=== PATIENT | female | born 1940 | race Caucasian/White ===

== ENCOUNTER 2016-10-20 17:53 | Inpatient (IN) | payer MEDICARE, BC ==
[2016-10-20] MEDS ORDERED: ACETAMINOPHEN 325 MG TABLET PO PRN (18:04)
[2016-10-20] MEDS ORDERED: FAMOTIDINE 20 MG TABLET PO PRN (18:04)
[2016-10-20] MEDS ORDERED: HOME MEDICATION LIST NEEDED 1 EA EACH MC ONE (18:04)
[2016-10-20] MEDS ORDERED: SODIUM CHLORIDE NASAL SPRAY 44 SPRAY/44 ML BTL NASAL PRN (18:23)
[2016-10-20] MEDS ORDERED: DIPHENHYDRAMINE 25 MG CAPSULE PO PRN (18:25)
[2016-10-20 18:45] LABS: HEMOGLOBIN 15.1 g/dL (12.0-16.0)
[2016-10-20 18:50] LABS: BASOPHILS 0.3 % (0.0-2.0); EOSINOPHILS 0.7 % (0.0-6.0); EOSINOPHILS# 0.1 X 10^3uL (0.0-0.4); HEMATOCRIT 43.9 % (36.0-48.0); LYMPHOCYTES 12.7 % (20.0-40.0); LYMPHOCYTES# 1.2 X 10^3uL (0.8-3.8); MEAN CELL VOLUME 89.9 fL (80.0-100.0); MEAN CORPUS. HGB CONCENTRATION 34.5 g/dL (32.0-36.0); MEAN PLATELET VOLUME 7.9 fL (7.4-10.4); MONOCYTES 4.1 % (2.0-10.0); MONOCYTES# 0.4 X 10^3uL (0.2-1.0); NEUTROPHILS 82.2 % (54.0-75.0); NEUTROPHILS# 8.1 X 10^3uL (2.6-6.7); PLATELET COUNT 279 X 10^3uL (130-440); RED BLOOD COUNT 4.89 X 10^6uL (4.20-6.10); RED CELL DISTRIBUTION WIDTH 12.5 % (11.5-14.5); WHITE BLOOD COUNT 9.8 X 10^3uL (3.9-10.7)
[2016-10-20 18:56] LABS: ALBUMIN 4.7 g/dL (3.5-5.0); ALKALINE PHOSPHATASE 88 U/L (38-126); ALT 49 U/L (9-52); AST 30 U/L (14-36); BILIRUBIN, DIRECT 0.2 mg/dL (0.0-0.4); BILIRUBIN, TOTAL 0.6 mg/dL (0.2-1.3); BLOOD UREA NITROGEN 12 mg/dL (7-17); CALCIUM 9.4 mg/dL (8.4-10.2); CHLORIDE 100 mmol/L (98-107); CREATININE 0.9 mg/dL (0.5-1.0); EST GLOMERULAR FILTRATION RATE > 60 mL/min; GLUCOSE 104 mg/dL (70-100); POTASSIUM 4.1 mmol/L (3.5-5.1); SODIUM 134 mmol/L (137-145)
[2016-10-20] MEDS: IPRATROPIUM/ALBUTEROL 0.5/3 MG 3 ML AMPUL.NEB INHALATION SCH ×2 (19:56→22:46)
[2016-10-20] MEDS ORDERED: HOME MEDICATION LIST NEEDED 1 EA EACH MISC ONE (20:00)
[2016-10-20 20:12] LABS: URINE MUCUS NONE SEEN (Up to 25%)
[2016-10-20] MEDS: FLUTICASONE NASAL 120 SPRAY BTL NASAL SCH (20:13)
[2016-10-20] MEDS: GUAIFENESIN ER 600 MG TABLET PO SCH (20:14)
[2016-10-20] MEDS: METHYLPREDNISOLONE SOD 125 MG/2 ML VIAL IV SCH (20:14)
[2016-10-20] MEDS: TUSSIONEX PENNKINETIC SUSP 5 ML UDC PO SCH (20:14)
[2016-10-20] MEDS: NORMAL SALINE 1,000 ML IV SCH (20:14)
[2016-10-20 20:24] LABS: URINE APPEARANCE CLEAR; URINE BILIRUBIN NEGATIVE (NEGATIVE); URINE BLOOD 10 Ery/uL (1+) (NEGATIVE); URINE COLOR YELLOW; URINE GLUCOSE NORMAL (NEGATIVE); URINE KETONE NEGATIVE (NEGATIVE); URINE LEUKOCYTE ESTERASE NEGATIVE (NEGATIVE); URINE NITRITE NEGATIVE (NEGATIVE); URINE PH 5.5 (5-7); URINE PROTEIN NEGATIVE (NEG - TRACE); URINE SPECIFIC GRAVITY < or = 1.005 (0.001-1.035); URINE UROBILINOGEN NORMAL (NEG-1mg/dL)
[2016-10-20 20:25] LABS: URINE BACTERIA NONE SEEN (<10/hpf); URINE RBC 0-5/hpf (0-5/hpf); URINE SQUAMOUS EPITHELIAL CELL 0-5/hpf (<= 15/hpf); URINE WBC 0-4/hpf (0-4/hpf)
[2016-10-20] MEDS: traZODone HCL 50 MG TABLET PO SCH (21:19)
[2016-10-20] MEDS: OSELTAMIVIR PHOSPHATE 75 MG CAPSULE PO SCH (21:19)
[2016-10-21] MEDS: METHYLPREDNISOLONE SOD 125 MG/2 ML VIAL IV SCH ×4 (00:52→21:08)
[2016-10-21] MEDS: IPRATROPIUM/ALBUTEROL 0.5/3 MG 3 ML AMPUL.NEB INHALATION SCH ×5 (02:30→21:07)
[2016-10-21] MEDS: NORMAL SALINE 1,000 ML IV SCH (02:41)
[2016-10-21 05:42] LABS: BASOPHILS 0.2 % (0.0-2.0); HEMATOCRIT 36.5 % (36.0-48.0); HEMOGLOBIN 12.6 g/dL (12.0-16.0); LYMPHOCYTES 5.8 % (20.0-40.0); LYMPHOCYTES# 0.4 X 10^3uL (0.8-3.8); MEAN CELL VOLUME 89.9 fL (80.0-100.0); MEAN CORPUS. HGB CONCENTRATION 34.3 g/dL (32.0-36.0); MEAN CORPUSCULAR HEMOGLOBIN 30.9 pg (29.0-35.0); MONOCYTES 0.4 % (2.0-10.0); NEUTROPHILS 93.6 % (54.0-75.0); NEUTROPHILS# 7.2 X 10^3uL (2.6-6.7); PLATELET COUNT 230 X 10^3uL (130-440); RED BLOOD COUNT 4.07 X 10^6uL (4.20-6.10); RED CELL DISTRIBUTION WIDTH 12.5 % (11.5-14.5); WHITE BLOOD COUNT 7.6 X 10^3uL (3.9-10.7)
[2016-10-21 05:48] LABS: BLOOD UREA NITROGEN 11 mg/dL (7-17); CALCIUM 8.5 mg/dL (8.4-10.2); CHLORIDE 104 mmol/L (98-107); CREATININE 0.8 mg/dL (0.5-1.0); EST GLOMERULAR FILTRATION RATE > 60 mL/min; POTASSIUM 3.8 mmol/L (3.5-5.1); SODIUM 133 mmol/L (137-145)
[2016-10-21 05:49] LABS: GLUCOSE 255 mg/dL (70-100)
[2016-10-21] MEDS: TUSSIONEX PENNKINETIC SUSP 5 ML UDC PO SCH ×2 (06:29→21:07)
[2016-10-21] MEDS: GUAIFENESIN ER 600 MG TABLET PO SCH ×2 (06:29→21:07)
--- NOTE | 2016-10-21 07:10 | HISTORY & PHYSICAL ---
DATE OF ADMISSION: 10/20/16 ATTENDING PHYSICIAN: Hemalatha Hackett MD PRIMARY CARE PHYSICIAN: Hemalatha Hackett MD CHIEF COMPLAINT: Fatigue. HISTORY OF PRESENT ILLNESS: This is a very pleasant otherwise healthy 76-year- old female who was diagnosed with influenza B on 10/16/16. She states that she has had 10-11 days of illness including sweats, but no fevers or chills, productive cough and profound runny nose. She states that her symptoms are worse than when she was diagnosed and see in the office on 10/16/16. She is having significant shortness of breath. She is waking up in the middle of the night short of breath and needs to prop herself with pillows at night. She is having chest tightness and rib pain secondary to her coughing. She had mild sore throat on the right which is now resolved. She states that she has had decreased oral intake and decreased urine output. REVIEW OF SYSTEMS: She has not had any abdominal pain. No nausea or vomiting. No diarrhea. She had a colonoscopy on 10/08/16 and does not believe she has had a bowel movement since that time. She has had decreased oral intake. No rash. No headache. She has had lightheadedness and dizziness. She states that the only reason she has been able to get any sleep is due to taking Nyquil in the evening. She has been using Cheratussin for her cough. She tried Singular which helped initially, but did not help when she took the Singular the next day. She has not had any eye drainage. She has had some ear ringing. PAST MEDICAL HISTORY 1. Chronic allergic rhinitis, she receives allergy shots. 2. Posterior bilateral vitreous detachment. 3. History of cataracts. 4. Dry eye syndrome. 5. 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 6. Osteopenia. 7. Hyperlipidemia. 8. Anxiety. 9. Hypothyroidism, although she has never taken medications: mildly elevated TSH with normal T3, T4. 10. History of left shoulder dislocation. 11. Insomnia. MEDICATIONS Cheratussin 5 mL every 8 hours as needed for cough. Tamiflu 75mg po BID (2 dosages left). Zyrtec allergy 10 mg daily. Trazadone 100 mg at bedtime. Singular 10 mg 2 hours before allergy shots. Flonase 2 squirts each nostril daily as needed for allergy symptoms. Centrum silver. Multivitamin daily. Fish oil daily. Potassium 99 mg tablet as needed for leg cramps. ALLERGIES: Penicillin causes hives. SOCIAL HISTORY: She is single. She has never been . No children. 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 Alcohol, 1 glass of wine at night. She is a former smoker, 30+ pack years. Quit tobacco 1979 and smoked 1-1.5 packs per day. She is a full- time [place] resident. FAMILY HISTORY: Mom at the age of 92, osteoporosis, hypertension, coronary artery disease, Parkinsons, hypothyroidism, macular degeneration. Dad at the age of 83 with history of cerebrovascular accident, coronary artery disease and alcohol abuse. She has a half sister who had a stroke at the age of 68, breast cancer diagnosed at 78, atrial fibrillation, valve replacement and a half brother in his mid-60s, colon cancer which was diagnosed in his 60s. DATA: Chest x-ray shows some lung hyperexpansion and increased peribronchial markings consistent with viral process but no acute infiltrate. No fluid. No other abnormalities. PHYSICAL EXAMINATION VITAL SIGNS: Temperature 96.9, pulse 88, respiratory rate 24, blood pressure 128 /66, 91% on room air and 90% with minimal ambulation with a heart rate of 104. Her weight is 146.7 pounds. Height 66.5 inches. GENERAL: This is an elderly female who appears moderately ill and quite fatigued. She is in mild respiratory distress at rest. HEENT: Her sclerae are clear. Her pupils are equal, round and reactive to light. Extraocular movements are intact. Her TMs are clear. Her nares are boggy and congested with abutting mucosa. Her oropharynx is clear. Her mucous membranes are moist and intact. Her lips are dry. NECK: Her neck is supple with no carotid bruits. No lymphadenopathy. No jugular venous distention. LUNGS: Poor aeration throughout with diffuse inspiratory and expiratory wheezing. She has high pitched noises. No E:A changes. No rales. HEART: Regular rate and rhythm without any murmurs, rubs or gallops. ABDOMEN: Soft, nontender, nondistended with good bowel sounds and no masses or hepatosplenomegaly. EXTREMITIES: Warm with no clubbing, cyanosis or edema. Negative Homans. Nontender. NEUROLOGIC: Alert and oriented x3. Cranial nerves 2-12 are grossly intact without focal deficits. Her motor, sensation and DTRs are intact. Her gait is normal. No meningismus. ASSESSMENT: This is a 76-year-old female who presents with influenza B and with worsened bronchospasm, weakness and dehydration. PLAN 1. Fluids, electrolytes and nutrition. Will give IV fluids. Check electrolytes. Regular diet. 2. Respiratory. Chest x-ray is negative for acute infiltrate. Will finish course of Tamiflu. Will begin Solu-Medrol, incentive spirometer, respiratory therapy consult. Give back to back duo nebulizers and then duo nebulizers every 4 hours. She is currently not requiring oxygen but will use oxygen to maintain saturations 90-95%. Tussionex cough syrup. Benadryl. Mucinex. Follow closely. 3. Cardiovascular. Patient without cardiac history, although she does have a history of palpitations. She has had a negative cardiac workup with Holter monitor showing rare PVCs and PACs. No pauses or heart block and these palpitations are only in conjunction with sinus rhythm. Echocardiogram normal. Will place on telemetry. Check EKG. 4. Infectious disease. Patient without evidence of acute bacterial process. Will check urinalysis. Will not begin antibiotics at this time. 5. Disposition. Full COR. Admitted full admission. Anticipate 2-3 day hospital stay. Social work consult. May consider physical therapy consult if her weakness does not improve. MTDD
--- NOTE | 2016-10-21 08:21 | PROGRESS NOTE: IM SOAP ---
IM: PN Subjective General: fatigue (But greatly improved.), anxiety (Decreased now that she is feeling better.), no good appetite (But improving. ), no diaphoresis, no fever, no chills HEENT: other (Dry mouth. Drinking fluids well. Postnasal drainage improved.) Cardiovascular: chest pain (Decreased. ), dizziness (Improved with walking to BR.) Respiratory: cough (Decreased; still productive.), sputum, wheeze (Also improved. ), SOB (Improved. ) Gastrointestinal: constipation (But not uncomfortable.), no abdominal pain, no bloating, no nausea, no vomiting Musculoskeletal: no pain Neurological: headache IM: PN Objective Exam - I&O/Vital Signs I&O: Intake & Output 10/20/16 10/21/16 10/21/16 21:59 05:59 13:59 Intake Total 2170 Output Total 1150 Balance 1020 Weight 66.451 kg 66.366 kg Intake: IV 1320 Left Forearm 1320 Oral 850 Output: Urine 1150 Other: Urine Appearance Clear Clear Urine Color Yellow Yellow Voiding Method Toilet Toilet # Voids 3 # Bowel Movements 0 Vital Signs: Last Vital Signs Temp 36.3 C L 10/21/16 06:32 Pulse 90 10/21/16 06:32 Resp 13 10/21/16 06:32 BP 124/67 10/21/16 06:32 Pulse Ox 92 10/21/16 06:32 Oxygen Delivery Method Room Air - Constitutional General appearance: Present: average body habitus, cooperative. Absent: acute distress - Head Head exam: Present: atraumatic, normocephalic - Eye Eye exam: Present: EOMI, PERRL - ENT ENT exam: Present: mucous membranes moist - Neck Neck exam: Present: full ROM - Respiratory Respiratory exam: Present: clear (Greatly improved aeration throughout.). Absent: accessory muscle use, rales, rhonchi, wheezes - Cardiovascular Cardiovascular exam: Present: RRR. Absent: gallop, rubs, systolic murmur - GI/Abdominal GI/Abdominal exam: Present: normal bowel sounds, soft. Absent: mass, organomegaly, tenderness - Extremities Exam Extremities exam: Absent: calf tenderness, Mohan's Sign, edema - Neurological Exam Neurological exam: Present: alert, oriented X3 - Skin Skin exam: Present: warm - Allied Health Notes Allied health notes reviewed: nursing - Lab Labs: Laboratory Last Values WBC 7.6 X 10^3uL (3.9-10.7) 10/21/16 05:00 RBC 4.07 X 10^6uL (4.20-6.10) L 10/21/16 05:00 Hgb 12.6 g/dL (12.0-16.0) 10/21/16 05:00 Hct 36.5 % (36.0-48.0) 10/21/16 05:00 MCV 89.9 fL (80.0-100.0) 10/21/16 05:00 MCH 30.9 pg (29.0-35.0) 10/21/16 05:00 MCHC 34.3 g/dL (32.0-36.0) 10/21/16 05:00 RDW 12.5 % (11.5-14.5) 10/21/16 05:00 Plt Count 230 X 10^3uL (130-440) 10/21/16 05:00 MPV 8.0 fL (7.4-10.4) 10/21/16 05:00 Neutrophils % 93.6 % (54.0-75.0) H 10/21/16 05:00 Lymphocytes % 5.8 % (20.0-40.0) L 10/21/16 05:00 Eosinophils % 0.0 % (0.0-6.0) 10/21/16 05:00 Basophils % 0.2 % (0.0-2.0) 10/21/16 05:00 Neutrophils # 7.2 X 10^3uL (2.6-6.7) H 10/21/16 05:00 Lymphocytes # 0.4 X 10^3uL (0.8-3.8) L 10/21/16 05:00 Monocytes 0.4 % (2.0-10.0) L 10/21/16 05:00 Monocytes # 0.0 X 10^3uL (0.2-1.0) L 10/21/16 05:00 Eosinophils # 0.0 X 10^3uL (0.0-0.4) 10/21/16 05:00 Basophils # 0.0 X 10^3uL (0.0-0.1) 10/21/16 05:00 Sodium 133 mmol/L (137-145) L 10/21/16 05:00 Potassium 3.8 mmol/L (3.5-5.1) 10/21/16 05:00 Chloride 104 mmol/L (98-107) 10/21/16 05:00 Carbon Dioxide 19 mmol/L (22-30) L 10/21/16 05:00 BUN 11 mg/dL (7-17) 10/21/16 05:00 Creatinine 0.8 mg/dL (0.5-1.0) 10/21/16 05:00 GFR Calculation > 60 mL/min 10/21/16 05:00 Glucose 255 mg/dL (70-100) H 10/21/16 05:00 Calcium 8.5 mg/dL (8.4-10.2) 10/21/16 05:00 Total Bilirubin 0.6 mg/dL (0.2-1.3) 10/20/16 18:04 Direct Bilirubin 0.2 mg/dL (0.0-0.4) 10/20/16 18:04 AST 30 U/L (14-36) 10/20/16 18:04 ALT 49 U/L (9-52) 10/20/16 18:04 Alkaline Phosphatase 88 U/L (38-126) 10/20/16 18:04 Total Protein 8.0 g/dL (6.3-8.2) 10/20/16 18:04 Albumin 4.7 g/dL (3.5-5.0) 10/20/16 18:04 Urine Color Yellow 10/20/16 20:00 Urine Appearance Clear 10/20/16 20:00 Urine pH 5.5 (5-7) 10/20/16 20:00 Ur Specific [place] < or = 1.005 (0.001-1.035) 10/20/16 20:00 Urine Protein Negative (NEG - TRACE) 10/20/16 20:00 Urine Ketones Negative (NEGATIVE) 10/20/16 20:00 Urine Blood 10 km/ul (1+) (NEGATIVE) A 10/20/16 20:00 Urine Nitrate Negative (NEGATIVE) 10/20/16 20:00 Urine Bilirubin Negative (NEGATIVE) 10/20/16 20:00 Urine Urobilinogen Normal (NEG-1mg/dL) 10/20/16 20:00 Ur Leukocyte Esterase Negative (NEGATIVE) 10/20/16 20:00 Urine RBC 0-5/hpf (0-5/hpf) 10/20/16 20:00 Urine WBC 0-4/hpf (0-4/hpf) 10/20/16 20:00 Ur Squamous Epith Cells 0-5/hpf (<= 15/hpf) 10/20/16 20:00 Urine Bacteria None seen (<10/hpf) 10/20/16 20:00 Urine Mucus None seen (Up to 25%) 10/20/16 20:00 Urine Glucose Normal (NEGATIVE) 10/20/16 20:00 Assessment and Plan - Date of Encounter Date of Encounter: 10/21/16 (1) Influenza B Status: Acute Assessment and plan: Diagnosed 10/16/16. Finishing Tamiflu today. She has developed a post-viral bronchospasm. Improving. Current Visit: Yes (2) Bronchospasm Status: Acute Assessment and plan: Former smoker. Severe pneumonia as a child. No prior h/o asthma. She developed significant bronchospasm with poor aeration, wheezing, and intractable cough after diagnosis with influenza B. CXR negative. Greatly improved today with IV steroids, Duonebs, and IS. RT consult today. Will decrease IV steroids. If she develops further reactive disease as outpatient, will pursue PFTs and pulmonary consult. Current Visit: Yes (3) Weakness Status: Acute Assessment and plan: Profound weakness on admission which has improved. BC IVF with improved po. PT to evaluate for home safety. Current Visit: Yes (4) Hyponatremia Status: Acute Assessment and plan: Known SIADH. Now with lung process and low sodium. Overall stable. Follow. Current Visit: Yes (5) Hyperglycemia Status: Acute Assessment and plan: No known h/o glucose intolerance. Elevated BS most likely related to IV steroids. Follow. Current Visit: Yes (6) PAC (premature atrial contraction) Status: Chronic Assessment and plan: Known PACs and PVCs with Holter monitor and echocardiogram otherwise normal. EKG without acute changes and telemetry stable overnight. Current Visit: Yes - Time Spent With Patient Total time spent with greater than 50% in coordination of care (as documented) at patient's floor/unit and/or counseling patient: 16-24 minutes Estimated anticipated discharge: Tomorrow. Quality Questions - VTE Prophylaxis Assessment VTE Present on Admission?: No Patient at risk for venous thromboembolism?: Yes VTE Risk Level: Moderate Risk Pharmaceutical VTE prophylaxis contraindication reason: N/A- VTE prophylaxsis ordered Mechanical VTE prophylaxis contraindication reason: N/A- VTE prophylaxsis ordered
[2016-10-21] MEDS ORDERED: METHYLPREDNISOLONE SOD 125 MG/2 ML VIAL IV SCH (09:00)
[2016-10-21] MEDS: OSELTAMIVIR PHOSPHATE 75 MG CAPSULE PO SCH (09:09)
[2016-10-21] MEDS: FLUTICASONE NASAL 120 SPRAY BTL NASAL SCH (09:09)
[2016-10-21] MEDS: SENNOSIDES/DOCUSATE SODIUM 1 TAB TABLET PO SCH ×2 (16:33→21:08)
[2016-10-21] MEDS: traZODone HCL 50 MG TABLET PO SCH (21:07)
[2016-10-21] MEDS ORDERED: MAG-AL PLUS XS SUSP 30 ML UDC ONE (21:55)
[2016-10-22] MEDS: IPRATROPIUM/ALBUTEROL 0.5/3 MG 3 ML AMPUL.NEB INHALATION SCH ×6 (00:46→23:10)
[2016-10-22 06:10] LABS: BLOOD UREA NITROGEN 13 mg/dL (7-17); CHLORIDE 105 mmol/L (98-107); CREATININE 0.7 mg/dL (0.5-1.0); EST GLOMERULAR FILTRATION RATE > 60 mL/min; GLUCOSE 139 mg/dL (70-100); POTASSIUM 4.6 mmol/L (3.5-5.1); SODIUM 134 mmol/L (137-145)
[2016-10-22 06:45] LABS: HEMATOCRIT 37.4 % (36.0-48.0); HEMOGLOBIN 13.1 g/dL (12.0-16.0); MEAN CELL VOLUME 90.1 fL (80.0-100.0); MEAN CORPUSCULAR HEMOGLOBIN 31.5 pg (29.0-35.0); MEAN PLATELET VOLUME 7.8 fL (7.4-10.4); PLATELET COUNT 267 X 10^3uL (130-440); RED BLOOD COUNT 4.15 X 10^6uL (4.20-6.10); RED CELL DISTRIBUTION WIDTH 12.4 % (11.5-14.5); WHITE BLOOD COUNT 27.6 X 10^3uL (3.9-10.7)
[2016-10-22 06:46] LABS: BAND% (Manual) 5 % (0.0-1.0); NEUTROPHIL % (Manual) 86 % (54.0-75.0)
[2016-10-22 06:47] LABS: LYMPHOCYTE % (Manual) 6 % (20.0-40.0); MONOCYTE % (Manual) 3 % (2.0-10.0)
[2016-10-22 06:48] LABS: PLATELET ESTIMATE ADEQUATE
[2016-10-22] MEDS: GUAIFENESIN ER 600 MG TABLET PO SCH ×2 (06:50→20:33)
[2016-10-22] MEDS: TUSSIONEX PENNKINETIC SUSP 5 ML UDC PO SCH ×2 (06:50→20:33)
--- NOTE | 2016-10-22 08:41 | PROGRESS NOTE: IM SOAP ---
IM: PN Subjective General: fatigue (But greatly improved.), anxiety (Anxious; tearful; requests not togo home today as she does not believe she can take care of herself at home alone.), depression, good appetite (Improved.), diaphoresis (She states that she had sweats last night a), no fever, no chills HEENT: headache (Frontal.), other (Dry mouth. Drinking fluids well. Postnasal drainage improved.) Cardiovascular: chest pain (Decreased. ), dizziness (Improved with walking to BR.) Respiratory: cough (Decreased; still productive.), sputum, wheeze (Also improved. ), SOB (Improved. ) Gastrointestinal: constipation (Small BM. ), other (Heartburn last night.), no abdominal pain, no bloating, no nausea, no vomiting Musculoskeletal: no pain Neurological: headache IM: PN Objective Exam - I&O/Vital Signs I&O: Intake & Output 10/21/16 10/22/16 10/22/16 21:59 05:59 13:59 Intake Total 1200 850 Output Total 1000 Balance 200 850 Weight 66.366 kg 66 kg Intake: Oral 1200 850 Output: Urine 1000 Other: Urine Appearance Clear Urine Color Yellow Stool Size Moderate Stool Characteristics Formed Brown Voiding Method Toilet # Voids 1 3 # Bowel Movements 1 Vital Signs: Last Vital Signs Temp 36.3 C L 10/22/16 06:52 Pulse 88 10/22/16 06:52 Resp 17 10/22/16 06:52 BP 136/72 10/22/16 06:52 Pulse Ox 93 10/22/16 06:52 Oxygen Delivery Method Room Air - Constitutional General appearance: Present: average body habitus, cooperative, acute distress ( Jittery with tremor from medications. Anxious.) - Head Head exam: Present: atraumatic, normocephalic - Eye Eye exam: Present: EOMI, PERRL - ENT ENT exam: Present: mucous membranes moist - Neck Neck exam: Present: full ROM - Respiratory Respiratory exam: Present: wheezes (Occasional inspiratory and expiratory wheezes throughout this morning.). Absent: accessory muscle use, rales, rhonchi - Cardiovascular Cardiovascular exam: Present: tachycardia (Low 100s.). Absent: gallop, rubs, systolic murmur - GI/Abdominal GI/Abdominal exam: Present: normal bowel sounds, soft. Absent: mass, organomegaly, tenderness - Extremities Exam Extremities exam: Absent: calf tenderness, Mohan's Sign, edema - Neurological Exam Neurological exam: Present: alert, oriented X3 - Psychiatric Psychiatric exam: Present: anxious, depressed - Skin Skin exam: Present: warm - Allied Health Notes Allied health notes reviewed: nursing, PT - Lab Labs: Laboratory Last Values WBC 27.6 X 10^3uL (3.9-10.7) H 10/22/16 05:00 RBC 4.15 X 10^6uL (4.20-6.10) L 10/22/16 05:00 Hgb 13.1 g/dL (12.0-16.0) 10/22/16 05:00 Hct 37.4 % (36.0-48.0) 10/22/16 05:00 MCV 90.1 fL (80.0-100.0) 10/22/16 05:00 MCH 31.5 pg (29.0-35.0) 10/22/16 05:00 MCHC 35.0 g/dL (32.0-36.0) 10/22/16 05:00 RDW 12.4 % (11.5-14.5) 10/22/16 05:00 Plt Count 267 X 10^3uL (130-440) 10/22/16 05:00 MPV 7.8 fL (7.4-10.4) 10/22/16 05:00 Total Counted 100 10/22/16 05:00 Neutrophils % 93.6 % (54.0-75.0) H 10/21/16 05:00 Neutrophils % (Manual) 86 % (54.0-75.0) H 10/22/16 05:00 Band Neuts % (Manual) 5 % (0.0-1.0) H 10/22/16 05:00 Lymphocytes % 5.8 % (20.0-40.0) L 10/21/16 05:00 Lymphocytes % (Manual) 6 % (20.0-40.0) L 10/22/16 05:00 Monocytes % (Manual) 3 % (2.0-10.0) 10/22/16 05:00 Eosinophils % 0.0 % (0.0-6.0) 10/21/16 05:00 Basophils % 0.2 % (0.0-2.0) 10/21/16 05:00 Neutrophils # 7.2 X 10^3uL (2.6-6.7) H 10/21/16 05:00 Lymphocytes # 0.4 X 10^3uL (0.8-3.8) L 10/21/16 05:00 Monocytes 0.4 % (2.0-10.0) L 10/21/16 05:00 Monocytes # 0.0 X 10^3uL (0.2-1.0) L 10/21/16 05:00 Eosinophils # 0.0 X 10^3uL (0.0-0.4) 10/21/16 05:00 Basophils # 0.0 X 10^3uL (0.0-0.1) 10/21/16 05:00 Platelet Estimate Adequate 10/22/16 05:00 Sodium 134 mmol/L (137-145) L 10/22/16 05:00 Potassium 4.6 mmol/L (3.5-5.1) D 10/22/16 05:00 Chloride 105 mmol/L (98-107) 10/22/16 05:00 Carbon Dioxide 21 mmol/L (22-30) L 10/22/16 05:00 BUN 13 mg/dL (7-17) 10/22/16 05:00 Creatinine 0.7 mg/dL (0.5-1.0) 10/22/16 05:00 GFR Calculation > 60 mL/min 10/22/16 05:00 Glucose 139 mg/dL (70-100) H 10/22/16 05:00 Calcium 9.0 mg/dL (8.4-10.2) 10/22/16 05:00 Total Bilirubin 0.6 mg/dL (0.2-1.3) 10/20/16 18:04 Direct Bilirubin 0.2 mg/dL (0.0-0.4) 10/20/16 18:04 AST 30 U/L (14-36) 10/20/16 18:04 ALT 49 U/L (9-52) 10/20/16 18:04 Alkaline Phosphatase 88 U/L (38-126) 10/20/16 18:04 Total Protein 8.0 g/dL (6.3-8.2) 10/20/16 18:04 Albumin 4.7 g/dL (3.5-5.0) 10/20/16 18:04 Urine Color Yellow 10/20/16 20:00 Urine Appearance Clear 10/20/16 20:00 Urine pH 5.5 (5-7) 10/20/16 20:00 Ur Specific [place] < or = 1.005 (0.001-1.035) 10/20/16 20:00 Urine Protein Negative (NEG - TRACE) 10/20/16 20:00 Urine Ketones Negative (NEGATIVE) 10/20/16 20:00 Urine Blood 10 km/ul (1+) (NEGATIVE) A 10/20/16 20:00 Urine Nitrate Negative (NEGATIVE) 10/20/16 20:00 Urine Bilirubin Negative (NEGATIVE) 10/20/16 20:00 Urine Urobilinogen Normal (NEG-1mg/dL) 10/20/16 20:00 Ur Leukocyte Esterase Negative (NEGATIVE) 10/20/16 20:00 Urine RBC 0-5/hpf (0-5/hpf) 10/20/16 20:00 Urine WBC 0-4/hpf (0-4/hpf) 10/20/16 20:00 Ur Squamous Epith Cells 0-5/hpf (<= 15/hpf) 10/20/16 20:00 Urine Bacteria None seen (<10/hpf) 10/20/16 20:00 Urine Mucus None seen (Up to 25%) 10/20/16 20:00 Urine Glucose Normal (NEGATIVE) 10/20/16 20:00 Assessment and Plan - Date of Encounter Date of Encounter: 10/22/16 (1) Influenza B Status: Acute Assessment and plan: Diagnosed 10/16/16. She has finished her course of Tamiflu. She has developed a post-viral bronchospasm. She continue to have wheezing and squeaks on exam. Lung aeration improving. She still has significant weakness and is not ready to go home as she does not have any help and is unable to take care of herself at home alone. We will plan to have her stay one more day. I have discussed with both Ivet and geriatric social worker, Lu Tao . Current Visit: Yes (2) Bronchospasm Status: Acute Assessment and plan: Former smoker. Severe pneumonia as a child. No prior h/o asthma. She developed significant bronchospasm with poor aeration, wheezing, and intractable cough after diagnosis with influenza B. CXR negative. Continues to improve. However, too weak to go home as above. Appreciate RT input. I have stopped IV steroids and transitioned to oral prednisone. If she develops further reactive disease as outpatient, will pursue PFTs and pulmonary consult. Current Visit: Yes (3) Weakness Status: Acute Assessment and plan: Profound weakness on admission which has improved, but still present. Current Visit: Yes (4) Hyponatremia Status: Acute Assessment and plan: Known SIADH. Now with lung process and low sodium. Overall stable. Follow. Current Visit: Yes (5) Hyperglycemia Status: Acute Assessment and plan: No known h/o glucose intolerance. Elevated BS most likely related to IV steroids. Follow. Current Visit: Yes (6) PAC (premature atrial contraction) Status: Chronic Assessment and plan: Known PACs and PVCs with Holter monitor and echocardiogram otherwise normal. EKG without acute changes and telemetry stable overnight. Sinus tachycardia most likely related to IV steroids and nebulizers. Current Visit: Yes (7) Leukocytosis Status: Acute Assessment and plan: Markedly elevated WBC this morning with mild bandemia most likely related to IV steroids. No fevers. Doubt bacterial process. Check BCx to ensure no underlying bacterial etiology. Recheck U/A and UCx. Check repeat CBC tomorrow morning. Follow closely. Current Visit: Yes - Time Spent With Patient Total time spent with greater than 50% in coordination of care (as documented) at patient's floor/unit and/or counseling patient: Estimated anticipated discharge: Tomorrow: 10/23/16. Quality Questions - VTE Prophylaxis Assessment VTE Present on Admission?: No Patient at risk for venous thromboembolism?: Yes VTE Risk Level: Moderate Risk Pharmaceutical VTE prophylaxis contraindication reason: N/A- VTE prophylaxsis ordered Mechanical VTE prophylaxis contraindication reason: N/A- VTE prophylaxsis ordered (7) Leukocytosis Qualifiers: Leukocytosis type: bandemia Qualified Code(s): D72.825 - Bandemia
[2016-10-22] MEDS ORDERED: predniSONE 5 MG TABLET PO SCH (09:00)
[2016-10-22] MEDS ORDERED: predniSONE 1 MG TABLET PO SCH (09:00)
[2016-10-22] MEDS: FLUTICASONE NASAL 120 SPRAY BTL NASAL SCH (10:13)
[2016-10-22] MEDS: predniSONE 10 MG TABLET PO SCH (10:13)
[2016-10-22 10:53] LABS: URINE MUCUS NONE SEEN (Up to 25%); URINE RBC NONE SEEN (0-5/hpf); URINE SQUAMOUS EPITHELIAL CELL NONE SEEN (<= 15/hpf); URINE WBC NONE SEEN (0-4/hpf)
[2016-10-22 11:32] LABS: URINE APPEARANCE CLEAR; URINE COLOR YELLOW; URINE LEUKOCYTE ESTERASE NEGATIVE (NEGATIVE); URINE NITRITE NEGATIVE (NEGATIVE); URINE PROTEIN NEGATIVE (NEG - TRACE)
[2016-10-22 11:33] LABS: URINE BACTERIA NONE SEEN (<10/hpf); URINE BILIRUBIN NEGATIVE (NEGATIVE); URINE BLOOD TRACE (NEGATIVE); URINE GLUCOSE NORMAL (NEGATIVE); URINE KETONE NEGATIVE (NEGATIVE); URINE UROBILINOGEN 0.2mg/dL (Normal) (NEG-1mg/dL)
[2016-10-22] MEDS: SENNOSIDES/DOCUSATE SODIUM 1 TAB TABLET PO SCH (20:33)
[2016-10-22] MEDS: traZODone HCL 50 MG TABLET PO SCH (20:34)
[2016-10-23] MEDS: IPRATROPIUM/ALBUTEROL 0.5/3 MG 3 ML AMPUL.NEB INHALATION SCH ×2 (04:47→08:16)
[2016-10-23 05:48] LABS: BASOPHILS 0.2 % (0.0-2.0); EOSINOPHILS 0.1 % (0.0-6.0); HEMATOCRIT 37.3 % (36.0-48.0); HEMOGLOBIN 12.7 g/dL (12.0-16.0); LYMPHOCYTES# 2.2 X 10^3uL (0.8-3.8); MEAN CELL VOLUME 90.2 fL (80.0-100.0); MEAN CORPUSCULAR HEMOGLOBIN 30.7 pg (29.0-35.0); MONOCYTES 5.2 % (2.0-10.0); NEUTROPHILS 82.5 % (54.0-75.0); NEUTROPHILS# 15.4 X 10^3uL (2.6-6.7); PLATELET COUNT 297 X 10^3uL (130-440); RED BLOOD COUNT 4.14 X 10^6uL (4.20-6.10); RED CELL DISTRIBUTION WIDTH 12.5 % (11.5-14.5); WHITE BLOOD COUNT 18.6 X 10^3uL (3.9-10.7)
[2016-10-23 05:55] LABS: BLOOD UREA NITROGEN 14 mg/dL (7-17); CALCIUM 8.6 mg/dL (8.4-10.2); CHLORIDE 105 mmol/L (98-107); CREATININE 0.8 mg/dL (0.5-1.0); EST GLOMERULAR FILTRATION RATE > 60 mL/min; GLUCOSE 90 mg/dL (70-100); POTASSIUM 4.1 mmol/L (3.5-5.1); SODIUM 136 mmol/L (137-145)
[2016-10-23 06:15] VITALS: BP 116/64; TEMP 97.9; O2SAT 93
[2016-10-23] MEDS: GUAIFENESIN ER 600 MG TABLET PO SCH (06:41)
[2016-10-23] MEDS: TUSSIONEX PENNKINETIC SUSP 5 ML UDC PO SCH (06:41)
[2016-10-23 08:19] VITALS: PULSE 89; RESP 14
[2016-10-23] MEDS: FLUTICASONE NASAL 120 SPRAY BTL NASAL SCH (09:09)
[2016-10-23] MEDS: predniSONE 10 MG TABLET PO SCH (09:09)
--- NOTE | 2016-10-23 11:06 | PROGRESS NOTE: IM SOAP ---
IM: PN Subjective Interval history: Feeling much better and stronger today and ready to go home. Will have family to support her at home. Still with dry cough for which she takes Tussionex. No wheezing, F/C. IM: PN Objective Exam - I&O/Vital Signs I&O: Intake & Output 10/22/16 10/23/16 10/23/16 21:59 05:59 13:59 Intake Total 340 625 Balance 340 625 Weight 66 kg 66 kg Intake: Oral 340 625 Other: Urine Appearance Clear Urine Color Yellow Stool Size Moderate Stool Characteristics Formed Brown Voiding Method Toilet # Voids 3 # Bowel Movements 1 Vital Signs: Last Vital Signs Temp 36.6 C 10/23/16 06:14 Pulse 89 10/23/16 08:18 Resp 14 10/23/16 08:18 BP 116/64 10/23/16 06:14 Pulse Ox 93 10/23/16 08:18 Oxygen Delivery Method Room Air - Respiratory Respiratory exam: Present: clear. Absent: rales, rhonchi, wheezes - Cardiovascular Cardiovascular exam: Present: RRR. Absent: systolic murmur - GI/Abdominal GI/Abdominal exam: Present: soft. Absent: tenderness - Extremities Exam Extremities exam: Absent: edema - Lab Labs: Laboratory Last Values WBC 18.6 X 10^3uL (3.9-10.7) H 10/23/16 05:35 RBC 4.14 X 10^6uL (4.20-6.10) L 10/23/16 05:35 Hgb 12.7 g/dL (12.0-16.0) 10/23/16 05:35 Hct 37.3 % (36.0-48.0) 10/23/16 05:35 MCV 90.2 fL (80.0-100.0) 10/23/16 05:35 MCH 30.7 pg (29.0-35.0) 10/23/16 05:35 MCHC 34.0 g/dL (32.0-36.0) 10/23/16 05:35 RDW 12.5 % (11.5-14.5) 10/23/16 05:35 Plt Count 297 X 10^3uL (130-440) 10/23/16 05:35 MPV 8.0 fL (7.4-10.4) 10/23/16 05:35 Total Counted 100 10/22/16 05:00 Neutrophils % 82.5 % (54.0-75.0) H 10/23/16 05:35 Neutrophils % (Manual) 86 % (54.0-75.0) H 10/22/16 05:00 Band Neuts % (Manual) 5 % (0.0-1.0) H 10/22/16 05:00 Lymphocytes % 12.0 % (20.0-40.0) L 10/23/16 05:35 Lymphocytes % (Manual) 6 % (20.0-40.0) L 10/22/16 05:00 Monocytes % (Manual) 3 % (2.0-10.0) 10/22/16 05:00 Eosinophils % 0.1 % (0.0-6.0) 10/23/16 05:35 Basophils % 0.2 % (0.0-2.0) 10/23/16 05:35 Neutrophils # 15.4 X 10^3uL (2.6-6.7) H 10/23/16 05:35 Lymphocytes # 2.2 X 10^3uL (0.8-3.8) 10/23/16 05:35 Monocytes 5.2 % (2.0-10.0) 10/23/16 05:35 Monocytes # 1.0 X 10^3uL (0.2-1.0) 10/23/16 05:35 Eosinophils # 0.0 X 10^3uL (0.0-0.4) 10/23/16 05:35 Basophils # 0.0 X 10^3uL (0.0-0.1) 10/23/16 05:35 Platelet Estimate Adequate 10/22/16 05:00 Sodium 136 mmol/L (137-145) L 10/23/16 05:35 Potassium 4.1 mmol/L (3.5-5.1) 10/23/16 05:35 Chloride 105 mmol/L (98-107) 10/23/16 05:35 Carbon Dioxide 25 mmol/L (22-30) 10/23/16 05:35 BUN 14 mg/dL (7-17) 10/23/16 05:35 Creatinine 0.8 mg/dL (0.5-1.0) 10/23/16 05:35 GFR Calculation > 60 mL/min 10/23/16 05:35 Glucose 90 mg/dL (70-100) 10/23/16 05:35 Calcium 8.6 mg/dL (8.4-10.2) 10/23/16 05:35 Total Bilirubin 0.6 mg/dL (0.2-1.3) 10/20/16 18:04 Direct Bilirubin 0.2 mg/dL (0.0-0.4) 10/20/16 18:04 AST 30 U/L (14-36) 10/20/16 18:04 ALT 49 U/L (9-52) 10/20/16 18:04 Alkaline Phosphatase 88 U/L (38-126) 10/20/16 18:04 Total Protein 8.0 g/dL (6.3-8.2) 10/20/16 18:04 Albumin 4.7 g/dL (3.5-5.0) 10/20/16 18:04 Urine Color Yellow 10/22/16 10:40 Urine Appearance Clear 10/22/16 10:40 Urine pH 6.0 (5-7) 10/22/16 10:40 Ur Specific [place] 1.010 (0.001-1.035) 10/22/16 10:40 Urine Protein Negative (NEG - TRACE) 10/22/16 10:40 Urine Ketones Negative (NEGATIVE) 10/22/16 10:40 Urine Blood Trace (NEGATIVE) A 10/22/16 10:40 Urine Nitrate Negative (NEGATIVE) 10/22/16 10:40 Urine Bilirubin Negative (NEGATIVE) 10/22/16 10:40 Urine Urobilinogen 0.2mg/dl (normal) (NEG-1mg/dL) 10/22/16 10:40 Ur Leukocyte Esterase Negative (NEGATIVE) 10/22/16 10:40 Urine RBC None seen (0-5/hpf) 10/22/16 10:40 Urine WBC None seen (0-4/hpf) 10/22/16 10:40 Ur Squamous Epith Cells None seen (<= 15/hpf) 10/22/16 10:40 Urine Bacteria None seen (<10/hpf) 10/22/16 10:40 Urine Mucus None seen (Up to 25%) 10/22/16 10:40 Urine Glucose Normal (NEGATIVE) 10/22/16 10:40 Assessment and Plan - Date of Encounter Date of Encounter: 10/23/16 (1) Influenza B Status: Acute Assessment and plan: Improving. No oxygen. No wheezing. No indication for inhalers per RT. Will discharge on steroid taper. No antibiotics, completed course of Tamiflu. Current Visit: Yes (2) Leukocytosis Status: Acute Assessment and plan: Secondary to steroids, improving with reduction in steroid dose Current Visit: Yes (3) Weakness Status: Acute Assessment and plan: Improving Current Visit: Yes - Time Spent With Patient Total time spent with greater than 50% in coordination of care (as documented) at patient's floor/unit and/or counseling patient: Estimated anticipated discharge: Tomorrow: 10/23/16.
--- NOTE | 2016-10-24 08:02 | DISCHARGE SUMMARY ---
DATE OF ADMISSION: 10/20/16 DATE OF DISCHARGE: 10/23/16 ATTENDING PHYSICIAN: Beni Salomon MD DIAGNOSES 1. Influenza B. 2. Leukocytosis. 3. Generalized weakness. HISTORY OF PRESENT ILLNESS: This is a 76-year-old female who was diagnosed with influenza B on 10/16/16 and prescribed TamiFlu. Apparently she had a 10-11 days of illness including sweats, but no fevers or chills, productive cough or coryza. Symptoms had progressed since her office visit and by the time of admission she was having shortness of breath, orthopnea, paroxysmal nocturnal dyspnea, chest tightness, rib pain secondary to cough, sore throat, decreased oral intake and poor urine output. Please see previously dictated history and physical per Dr. Hackett for further details. HOSPITAL COURSE: Patient was admitted with influenza B with worsening bronchospasm, generalized weakness and dehydration. Patient has completed a course of Tamiflu and further antibiotics were not felt to be warranted. She was hydrated with intravenous fluids and started on Solu-Medrol. She was also having issues with generalized weakness and inability to care for herself and perform ADLs. By the time she was discharged, she felt much stronger and had availability of family support on return home. By the time of discharge, she still had a bit of a dry cough but no wheezing, fevers, chills, etc. No oxygen was warranted on discharge. No inhalers were felt to be warranted per respiratory therapy. She did have leukocytosis felt to be secondary to steroids and leukocytosis improved as steroid dosage was reduced. At this time, patient was felt to be sufficiently stable to return home. She will be followed on an outpatient basis. DISCHARGE INSTRUCTIONS: Patient may participate in activities as able. She is on a regular diet. She will follow up with Dr. Camacho on 10/29/16 but earlier if she begins to worsen. DISCHARGE MEDICATIONS Zolpidem 10 mg p.o. q.h.s. PRN. Benadryl 25 mg p.o. q.h.s. PRN. Guaifenesin with Codeine 5 mL p.o. t.i.d. PRN cough. Flonase nasal inhaler 2 sprays each nostril daily PRN. Singular 10 mg p.o. daily PRN. Trazadone 100 mg p.o. q.h.s. Zyrtec 10 mg p.o. daily. Mucinex 1200 mg p.o. b.i.d. (over the counter). Prednisone 20 mg p.o. taper, 3 tabs daily for 3 days, 2 tabs daily for 3 days, 1 tab daily for 3 days. Copies to: Dr. Hackett, Dr. Doug ROSE
== END 2016-10-23 11:37 | disposition home or self-care (01) | DRG 866 ==
LOC: IN 18:04
PROVIDERS: ADMIT Family Medicine; ATTEND Family Medicine
DX: J10.89 Influenza due to other identified influenza virus with other manifestations (principal); E78.5 Hyperlipidemia, unspecified; E03.9 Hypothyroidism, unspecified; G47.00 Insomnia, unspecified; E22.2 Syndrome of inappropriate secretion of antidiuretic hormone; J30.89 Other allergic rhinitis; D72.829 Elevated white blood cell count, unspecified; R53.1 Weakness; K59.00 Constipation, unspecified; Z79.899 Other long term (current) drug therapy
CPT/HCPCS: 36415; 80048; 80076; 81001; 85007; 85025; 85027; 87040; 93041; 94640; 94664; J2930; J7030; J7512; J7620; Q0163